=== PATIENT | female | born 1970 | race Caucasian/White ===

== ENCOUNTER → 2019-02-06 | Outpatient (CLI) | payer MEDICAID | END | disposition home or self-care (01) | LOC: MA 08:31 | PROC: BW4GZZZ Ultrasonography of Pelvic Region (ICD-10-PCS; principal; 2019-02-06) | PROC: BH02ZZZ Plain Radiography of Bilateral Breasts (ICD-10-PCS; 2019-02-06) | DX: R10.2 Pelvic and perineal pain (principal); Z12.31 Encounter for screening mammogram for malignant neoplasm of breast | CPT/HCPCS: 77067 ==

== ENCOUNTER 2019-04-03 08:10 | Emergency (ER) | payer MEDICAID ==
[~2019-04-03] VITALS: Ht 160 cm; Wt 54.4 kg
[2019-04-03 08:16] VITALS: Ht 160 cm; Wt 54.4 kg
[2019-04-03 08:50] LABS: microscopic required? NO
[2019-04-03 09:03] LABS: BASOPHIL % 0.3 % (0-2); PLATELET COUNT 271 x10^3mcL (130-400)
[2019-04-03 09:05] LABS: urine erythrocyte NEGATIVE (NEGATIVE)
[2019-04-03 09:52] LABS: CALCIUM 9.7 mg/dL (8.5-10.1); CARBON DIOXIDE 23.3 mmol/L (21-32); CHLORIDE SERUM 105 mmol/L (98-107); CREATININE SERUM 0.6 mg/dL (0.6-1.0); GFR1 > 60 mL/min; GLUCOSE SERUM 108 mg/dL (74-106); POTASSIUM SERUM 3.8 mmol/L (3.5-5.1); SODIUM SERUM 142 mmol/L (136-145)
[2019-04-03 09:56] LABS: ALBUMIN 3.7 g/dL (3.4-5.0); ALKALINE PHOSPHATASE 270 U/L (46-116); ALT/SGPT 94 U/L (14-59); AST/SGOT 29 U/L (15-37); BILIRUBIN TOTAL 0.44 mg/dL (0.20-1.00); TOTAL PROTEIN, SERUM 7.8 g/dL (6.4-8.2)
[2019-04-03 12:49] VITALS: BP 132/88
== END 2019-04-03 12:49 | disposition home or self-care (01) ==
LOC: ED 08:10
PROVIDERS: Emergency Medicine
DX: J20.9 Acute bronchitis, unspecified (principal); G80.9 Cerebral palsy, unspecified; F79 Unspecified intellectual disabilities
CPT/HCPCS: 36415; 87804; J7030; Q0092

== ENCOUNTER → 2020-05-08 | Outpatient (CLI) | payer MEDICAID | END | disposition home or self-care (01) | LOC: US 09:31 | PROC: BW4GZZZ Ultrasonography of Pelvic Region (ICD-10-PCS; principal; 2020-05-08) | PROC: BH02ZZZ Plain Radiography of Bilateral Breasts (ICD-10-PCS; 2020-05-08) | DX: R10.2 Pelvic and perineal pain (principal); Z12.31 Encounter for screening mammogram for malignant neoplasm of breast | CPT/HCPCS: 77067 ==

== ENCOUNTER → 2021-01-26 | Outpatient (CLI) | payer MEDICAID | END | disposition home or self-care (01) | LOC: US 09:00 | PROC: BW4GZZZ Ultrasonography of Pelvic Region (ICD-10-PCS; principal; 2021-01-26) | DX: R10.2 Pelvic and perineal pain (principal) ==